=== PATIENT | male | born 2000 | race Hispanic/Latino ===

== ENCOUNTER 2023-02-11 17:43 | Emergency (ER) | payer BC ==
--- NOTE | 2023-02-11 18:08 | EDPHYS ---
Physician Documentation [facility] Name: Boom Cota II Age: 22 yrs Sex: Male : 2000 Arrival Date: 02/11/2023 Time: 17:43 Bed DIS3 Private MD: ED Physician Adrien Ledesma HPI: 02/11 18:02 This 22 yrs old Male presents to ER via Ambulatory with complaints of Asthma cp Exacerbation. 18:02 The patient presents to the emergency department with wheezing, Current therapy: cp nebulizer, that began after exposure to smoke, the patient was reported to have audible wheezing, trouble breathing. Onset: The symptoms/episode began/occurred last night, and improved today. Associated signs and symptoms: Pertinent negatives: chest pain, fever, palpitations, cough, swelling of lower legs. Severity of symptoms: in the emergency department the symptoms have resolved and did so earlier today. Historical: - Allergies: 17:56 No Known Allergies; iw - PMHx: 17:56 Asthma; iw - PSHx: 17:56 None; iw - Immunization history:: Adult Immunizations unknown. - Social history:: Smoking status: unknown. ROS: 18:04 Eyes: Negative for injury, pain, redness, and discharge, cp 18:04 Constitutional: Negative for body aches, chills, fever, poor PO intake, 18:04 ENT: Negative for drainage from ear(s), ear pain, sore throat, difficulty swallowing, difficulty handling secretions, 18:04 Cardiovascular: Negative for chest pain, edema, palpitations, 18:04 Respiratory: Positive for shortness of breath, on exertion. wheezing, Negative for cough, 18:04 Abdomen/GI: Negative for abdominal pain, vomiting, diarrhea, constipation, 18:04 Neuro: Negative for altered mental status, dizziness, headache, syncope, weakness, 18:04 All other systems are negative, Exam: 18:05 Head/Face: Normocephalic, atraumatic. cp 18:05 Constitutional: The patient appears in no acute distress, alert, awake, comfortable, non-toxic, well developed, well nourished, 18:05 Eyes: Periorbital structures: appear normal, Conjunctiva: normal, no exudate, no injection, Sclera: no appreciated abnormality, Lids and lashes: appear normal, bilaterally, 18:05 ENT: External ear(s): are unremarkable, Nose: is normal, Mouth: Lips: moist, Oral mucosa: pink and intact, moist, Posterior pharynx: Airway: no evidence of obstruction, patent, 18:05 Neck: ROM/movement: is normal, is supple, without pain, no range of motions limitations, 18:05 Chest/axilla: Inspection: normal, Palpation: is normal, no crepitus, no tenderness, 18:05 Cardiovascular: Rate: normal, Rhythm: regular, Edema: is not appreciated, JVD: is not appreciated, 18:05 Respiratory: the patient does not display signs of respiratory distress, Respirations: normal, no use of accessory muscles, no retractions, labored breathing, is not present, Breath sounds: are clear throughout, no decreased breath sounds, no stridor, no wheezing, 18:05 Abdomen/GI: Exam negative for discomfort, distension, guarding, Inspection: abdomen appears normal, 18:05 Back: pain, is absent, ROM is normal, 18:05 Neuro: Orientation: to person, place \T\ time. Mentation: is normal, Motor: moves all fours, strength is normal, Gait: is steady, at a normal pace, without difficulty, Vital Signs: 17:54 BP 142 / 88; Pulse 80; Resp 19; Pulse Ox 99% on R/A; Weight 113.4 kg; iw 18:00 Height 5 ft. 11 in. ; iw MDM: 18:01 Patient medically screened. cp 18:05 Differential diagnosis: acute asthma, reactive airway, anaphylaxis, URI. cp 18:08 Data reviewed: vital signs, nurses notes, and as a result, I will discharge patient. cp 18:08 Counseling: I had a detailed discussion with the patient and/or guardian regarding the cp historical points, exam findings, and any diagnostic results supporting the discharge/admit diagnosis, the need for outpatient follow up, for definitive care, a family practitioner, to return to the emergency department if symptoms worsen or persist or if there are any questions or concerns that arise at home. Administered Medications: No medications were administered Disposition: 19:54 I was immediately available on-site in the Emergency Department for consultation in the [facility] care of the patient. Disposition Summary: 02/11/23 18:08 Discharge Ordered Notes: Location: Home cp Problem: chronic cp Symptoms: are unchanged cp Condition: Stable cp Diagnosis - Unspecified asthma, uncomplicated cp Followup: cp - With: Private Physician - When: 2 - 3 days - Reason: Worsening of condition Discharge Instructions: - Discharge Summary Sheet cp - Asthma, Adult cp Forms: - Work release form iw - Medication Reconciliation Form cp - Thank You Letter cp - Antibiotic Education cp - Prescription Opioid Use cp - Patient Portal Instructions cp - Leadership Thank You Letter cp Prescriptions: - albuterol sulfate 90 mcg/actuation Inhalation HFA Aerosol Inhaler - inhale 1 puff INHALATION route every 4 to 6 hours as needed for bronchospasm; cp administer via ventilator; 1 unit; Refills: 0, Product Selection Permitted - Albuterol Sulfate 2.5 mg /3 mL (0.083 %) Inhalation Solution for Nebulization - inhale 1 unit NEBULIZATION route every 8 hours As needed; 1 unit; Refills: 0, cp Product Selection Permitted Signatures: Amparo Alatorre RN RN iw Kody Jacobsen PA PA cp Sims, Marcus, DO DO ms3
--- NOTE | 2023-02-11 18:08 | ER ---
Nurse's Notes [facility] Name: Boom Cota II Age: 22 yrs Sex: Male : 2000 Arrival Date: 02/11/2023 Time: 17:43 Bed DIS3 Private MD: Diagnosis: Unspecified asthma, uncomplicated Presentation: 02/11 17:54 Chief complaint: Patient states: my asthma has been acting up since last night, my iw nebulizer tubing is messed up and it broke today, I have to work tonight and I'm worried I'll have an asthma attack. Coronavirus screen: Client presents with at least one sign or symptom that may indicate coronavirus-19. Ebola Screen: Patient negative for fever greater than or equal to 101.5 degrees Fahrenheit, and additional compatible Ebola Virus Disease symptoms Patient denies exposure to infectious person. Patient denies travel to an Ebola-affected area in the 21 days before illness onset. No symptoms or risks identified at this time. Initial Sepsis Screen: Does the patient meet any 2 criteria? No. Patient's initial sepsis screen is negative. Does the patient have a suspected source of infection? No. Patient's initial sepsis screen is negative. Risk Assessment: Do you want to hurt yourself or someone else? Patient reports no desire to harm self or others. Onset of symptoms was February 11, 2023. 17:54 Method Of Arrival: Ambulatory iw 17:54 Acuity: CORNELIO 4 iw Historical: - Allergies: 17:56 No Known Allergies; iw - PMHx: 17:56 Asthma; iw - PSHx: 17:56 None; iw - Immunization history:: Adult Immunizations unknown. - Social history:: Smoking status: unknown. Screenin:03 [facility] ED Fall Risk Assessment (Adult) Score/Fall Risk Level 0 - 2 = Low Risk. Abuse iw screen: Denies threats or abuse. Denies injuries from another. Nutritional screening: No deficits noted. Tuberculosis screening: No symptoms or risk factors identified. Assessment: 18:02 General: Appears in no apparent distress. Behavior is calm, cooperative. Pain: Denies iw pain. Neuro: Leung Agitation-Sedation Scale (RASS): Level of Consciousness is awake, alert, obeys commands, Oriented to person, place, time, situation, Moves all extremities. Full function. Cardiovascular: Patient's skin is warm and dry. Respiratory: Respiratory effort is even, unlabored, Respiratory pattern is regular, symmetrical. GI: Abdomen is non-distended. Derm: Skin is intact, is healthy with good turgor. Musculoskeletal: Range of motion: intact in all extremities. Vital Signs: 17:54 BP 142 / 88; Pulse 80; Resp 19; Pulse Ox 99% on R/A; Weight 113.4 kg; iw 18:00 Height 5 ft. 11 in. ; iw ED Course: 17:49 Patient arrived in ED. im 17:50 Kody Jacobsen PA is PHCP. cp 17:50 Adrien Ledesma DO is Attending Physician. cp 17:56 Triage completed. iw 18:00 Amparo Alatorre RN is Primary Nurse. iw 18:02 Arm band placed on. iw 18:03 Patient has correct armband on for positive identification. Provided Education on: . iw 18:03 No provider procedures requiring assistance completed. Patient did not have IV access iw during this emergency room visit. Administered Medications: No medications were administered Medication: 18:03 VIS not applicable for this client. iw Outcome: 18:08 Discharge ordered by MD. cp 18:29 Discharged to home ambulatory, iw 18:29 Condition: good 18:29 Discharge instructions given to patient, Instructed on discharge instructions, follow up and referral plans. medication usage, Demonstrated understanding of instructions, follow-up care, medications, Prescriptions given X 2, 18:30 Patient left the ED. iw Signatures: Amparo Alatorre RN RN iw Kody Jacobsen PA PA cp Amaya Lee im Corrections: (The following items were deleted from the chart) 18:01 18:00 Height 72 in.; iw iw
[2023-02-11 18:36] VITALS: BP 142/88; O2SAT 99
== END 2023-02-11 18:30 | disposition home or self-care (01) ==
LOC: ER 17:43
DX: J45.909 Unspecified asthma, uncomplicated (principal)
CPT/HCPCS: 99283

== ENCOUNTER → 2023-03-26 | Emergency (ER) | payer BC ==
--- NOTE | 2023-03-26 19:29 | EDPHYS ---
Physician Documentation [facility] Name: Boom Cota II Age: 22 yrs Sex: Male : 2000 Arrival Date: 03/26/2023 Time: 19:02 Bed Waiting Private MD: ED Physician Juan Francisco Olivares HPI: 03/26 19:25 This 22 yrs old Male presents to ER via Unassigned with complaints of Work kb Note. 19:25 Patient is a 22-year-old male who has a history of asthma presenting for a note to kb return to work today. States he sprained his ankle 4 days ago after falling off of a scooter, was seen at the [place] [facility], had x-rays done that showed no fracture and was given a walking boot. States they were supposed to give him a note to return to work but they did not so he came in to see if he could get 1 because yesterday at work at 10 PM. Historical: - Allergies: 19:46 No Known Allergies; jj7 - PMHx: 19:46 Asthma; jj7 - PSHx: 19:46 None; jj7 - Immunization history:: Adult Immunizations up to date. - Social history:: Smoking status: Patient denies any tobacco usage or history of. Patient uses street drugs, marijuana. ROS: 19:25 Constitutional: Negative for fever, chills, and weight loss, kb 19:25 MS/extremity: Positive for pain, swelling, tenderness, of the lateral side of right foot and dorsum of right foot, 19:25 All other systems are negative, Exam: 19:25 Constitutional: This is a well developed, well nourished patient who is awake, alert, kb and in no acute distress. Head/Face: Normocephalic, atraumatic. ENT: Moist Mucous membranes Cardiovascular: Regular rate Respiratory: Respirations even and unlabored. No increased work of breathing. Talking in full sentences Skin: Warm, dry with normal turgor. Normal color. Neuro: Awake and alert, GCS 15, oriented to person, place, time, and situation. Moves all extremities. Normal gait. 19:25 Musculoskeletal/extremity: Extremities: grossly normal except: noted in the dorsum of right foot and lateral side of right foot: pain, swelling, tenderness, ROM: intact in all extremities, Circulation is intact in all extremities. Sensation intact. Weight bearing: able to fully bear weight, Vital Signs: 19:41 BP 155 / 90; Pulse 77; Resp 17; Temp 97.1; Pulse Ox 98% ; Weight 113.4 kg; Height 5 ft. jj7 11 in. ; Pain 5/10; 19:41 Body Mass Index 34.87 (113.40 kg, 180.34 cm) [facility] 19:41 Pain Scale: Adult [facility] MDM: 19:09 Patient medically screened. kb 19:25 Differential diagnosis: Fracture, sprain, encounter for note. Data reviewed: vital kb signs, nurses notes. Test considered but Not performed: X-ray: Foot x-ray considered but patient reports symptoms are improving since initial injury, patient is already had a negative x-ray. Counseling: I had a detailed discussion with the patient and/or guardian regarding the historical points, exam findings, and any diagnostic results supporting the discharge/admit diagnosis, the need for outpatient follow up, a orthopedic surgeon, to return to the emergency department if symptoms worsen or persist or if there are any questions or concerns that arise at home. Administered Medications: No medications were administered Disposition: 20:11 Co-signature as Attending Physician, Juan Francisco Olivares MD I reviewed the patient's care rt provided by the Advanced Practice Provider and agree with the diagnosis and treatment plan. Disposition Summary: 03/26/23 19:29 Discharge Ordered Notes: Location: Home Condition: Stable kb Diagnosis - Encounter for issue of other medical certificate kb - Sprain of foot kb Followup: kb - With: Emergency Department - When: As needed - Reason: Worsening of condition Followup: kb - With: Private Physician - When: 2 - 3 days - Reason: Recheck today's complaints, Continuance of care, Re-evaluation by your physician Discharge Instructions: - Discharge Summary Sheet kb - Foot Sprain kb Forms: - Work release form kb - Medication Reconciliation Form kb - Thank You Letter kb - Antibiotic Education kb - Prescription Opioid Use kb - Patient Portal Instructions kb - Leadership Thank You Letter kb Signatures: Christiana Leon FNP-C FNP-Silver Flores RN RN jj7 Juan Francisco Olivares MD MD rt
--- NOTE | 2023-03-26 19:51 | ER ---
Nurse's Notes [facility] Name: Boom Cota II Age: 22 yrs Sex: Male : 2000 Arrival Date: 03/26/2023 Time: 19:02 Bed Waiting Private MD: Diagnosis: Encounter for issue of other medical certificate;Sprain of foot Presentation: 03/26 19:41 Chief complaint: Patient states: SPRAINED HIS RIGHT FOOT SUNDAY. STILL HAVING PAIN. jj7 Coronavirus screen: At this time, the client does not indicate any symptoms associated with coronavirus-19. Ebola Screen: No symptoms or risks identified at this time. Initial Sepsis Screen: Does the patient meet any 2 criteria? No. Patient's initial sepsis screen is negative. Does the patient have a suspected source of infection? No. Patient's initial sepsis screen is negative. Risk Assessment: Do you want to hurt yourself or someone else? Patient reports no desire to harm self or others. 19:41 Method Of Arrival: Ambulatory [facility] 19:41 Acuity: CORNELIO 5 jj7 Triage Assessment: 19:46 General: Appears in no apparent distress. comfortable, Behavior is calm, cooperative, jj7 appropriate for age. Pain: Complains of pain in dorsum of right foot. Musculoskeletal: Reports pain in dorsum of right foot. Historical: - Allergies: 19:46 No Known Allergies; jj7 - PMHx: 19:46 Asthma; jj7 - PSHx: 19:46 None; jj7 - Immunization history:: Adult Immunizations up to date. - Social history:: Smoking status: Patient denies any tobacco usage or history of. Patient uses street drugs, marijuana. Screenin:48 [facility] ED Fall Risk Assessment (Adult) History of falling in the last 3 months, jj7 including since admission No falls in past 3 months (0 pts). [facility] ED Fall Risk Assessment (Adult) Confusion or Disorientation No (0 pts) Intoxicated or Sedated No (0 pts) Impaired Gait No (0 pts) Mobility Assist Device Used No (0 pt) Altered Elimination No (0 pt) Score/Fall Risk Level 0 - 2 = Low Risk Oriented to surroundings, Maintained a safe environment, Educated pt \T\ family on fall prevention, incl call for assistance when getting out of bed. Abuse screen: Denies threats or abuse. Nutritional screening: No deficits noted. Tuberculosis screening: No symptoms or risk factors identified. Assessment: 19:48 Reassessment: SEE TRIAGE ASSESSMENT. jj7 Vital Signs: 19:41 BP 155 / 90; Pulse 77; Resp 17; Temp 97.1; Pulse Ox 98% ; Weight 113.4 kg; Height 5 ft. jj7 11 in. ; Pain 5/10; 19:41 Body Mass Index 34.87 (113.40 kg, 180.34 cm) jj7 19:41 Pain Scale: Adult j7 ED Course: 19:06 Patient arrived in ED. ae5 19:08 Christiana Leon F[facility]-C [facility]. ld1 19:09 Juan Francisco Olivares MD is Attending Physician. kb 19:46 Triage completed. jj7 19:46 Arm band placed on right wrist. jj7 19:48 Allergy band placed. jj7 19:48 No provider procedures requiring assistance completed. Patient did not have IV access jj7 during this emergency room visit. Administered Medications: No medications were administered Medication: 19:48 VIS not applicable for this client. jj7 Outcome: 19:29 Discharge ordered by . kb 19:48 Discharged to home ambulatory, jj7 19:48 Condition: good 19:48 Discharge instructions given to patient, Instructed on discharge instructions, Demonstrated understanding of instructions, 19:50 Patient left the ED. jj7 Signatures: Christiana Leon FNP-C FNP-Ckb Sims, Lauren, RN RN ld1 Silver Kimball RN RN jj7 Madelyn Stubbs ae5
[2023-03-27 00:42] VITALS: BP 155/90; TEMP 97.1; O2SAT 98
== END ==
LOC: ER 19:02
DX: Z02.79 Encounter for issue of other medical certificate (principal); S93.601A Unspecified sprain of right foot, initial encounter
CPT/HCPCS: 99282

== ENCOUNTER 2023-08-16 06:59 | Emergency (ER) | payer BC ==
[2023-08-16] MEDS ORDERED: ALBUTEROL 2.5 MG/3 ML NEB SOL ONE (07:20)
--- NOTE | 2023-08-16 07:34 | EDPHYS ---
Physician Documentation [facility] Name: Boom Cota II Age: 23 yrs Sex: Male : 2000 Arrival Date: 08/16/2023 Time: 06:59 Bed 6 Private MD: ED Physician Amari Enriquez HPI: 08/15 07:32 This 23 yrs old Male presents to ER via Ambulatory with complaints of Asthma rn Exacerbation. 07:32 The patient presents to the emergency department with wheezing, that began without any rn particular precipitating event. Onset: The symptoms/episode began/occurred yesterday. Modifying factors: The symptoms are alleviated by nothing, the symptoms are aggravated by nothing. Severity of symptoms: At their worst the symptoms were very mild in the emergency department the symptoms are unchanged. The patient has experienced similar episodes in the past. Patient reports has known asthma, has noticed some wheezing lately but ran out of his inhaler. Denies illness. No fever or cough. Denies shortness of breath. No trauma.. Historical: - Allergies: 07:14 No Known Allergies; ss - Home Meds: 07:14 ProAir [Active]; ss - PMHx: 07:07 Asthma; ld1 - PSHx: 07:14 None; ss - Immunization history:: Client reports receiving the 2nd dose of the Covid vaccine. - Infectious Disease History:: Denies. - Social history:: Smoking status: Patient reports the use of cigarette tobacco products, denies chronic smoking, but will smoke occasionally. - Family history:: not pertinent. - Hospitalizations: : No recent hospitalization is reported. ROS: 07:32 Constitutional: Negative for fever, chills, and weight loss, Cardiovascular: Negative rn for chest pain, palpitations, and edema, Respiratory: Positive for wheezing Exam: 07:32 Constitutional: This is a well developed, well nourished patient who is awake, alert, rn and in no acute distress. ENT: No stridor Cardiovascular: Regular rate and rhythm. No pulse deficits. Respiratory: Positive for intermittent wheezing bilaterally, no retractions Vital Signs: 07:10 Pulse 90; Resp 17; Temp 98(O); Pulse Ox 97% on R/A; Weight 111.13 kg; Height 5 ft. 11 ss in. ; Pain 0/10; 07:10 Body Mass Index 34.17 (111.13 kg, 180.34 cm) ss 07:10 Pain Scale: Adult ss MDM: 07:06 Patient medically screened. rn 07:32 Differential diagnosis: reactive airway. Data reviewed: vital signs, nurses notes, and rn as a result, I will discharge patient. Counseling: I had a detailed discussion with the patient and/or guardian regarding the historical points, exam findings, and any diagnostic results supporting the discharge/admit diagnosis, the need for outpatient follow up, to return to the emergency department if symptoms worsen or persist or if there are any questions or concerns that arise at home. Special discussion: I discussed with the patient/guardian in detail that at this point there is no indication for admission to the hospital. It is understood, however, that if the symptoms persist or worsen the patient needs to return immediately for re-evaluation. Administered Medications: 07:25 Drug: Albuterol Inhalation 2.5 mg Inhalation once Route: Inhalation; ld1 07:39 Follow up: Response: No adverse reaction ap3 Disposition Summary: 08/16/23 07:34 Discharge Ordered Notes: Location: Home rn Problem: chronic rn Symptoms: have improved rn Condition: Stable rn Diagnosis - Mild intermittent asthma rn Followup: rn - With: Private Physician - When: As needed - Reason: Recheck today's complaints, Re-evaluation by your physician Discharge Instructions: - Discharge Summary Sheet rn - Asthma, Adult rn Forms: - Medication Reconciliation Form rn - Antibiotic furniture restorer - Prescription Opioid Use rn - Patient Portal Instructions rn - Leadership Thank You Letter rn Prescriptions: - ProAir RespiClick 90 mcg/actuation Inhalation Aerosol Powder, Breath Activated - administer 2 inhalation INHALATION route every 6 hours As needed as needed for rn shortness of breath or wheezing; 1 unit; Refills: 0, Product Selection Permitted Signatures: Amari Enriquez MD MD rn Blanchard, Shelby, RN RN Oelna Zhang RN RN [email or web address] Rosalva Chowdhury RN ap3
--- NOTE | 2023-08-16 07:34 | ER ---
Nurse's Notes [facility] Name: Boom Cota II Age: 23 yrs Sex: Male : 2000 Arrival Date: 08/16/2023 Time: 06:59 Bed 6 Private MD: Diagnosis: Mild intermittent asthma Presentation: 08/15 07:10 Chief complaint: Patient states: asthma exacerbation since yesterday. Pt reports that ss his airway just feels a little tight. Has not needed his asthma medication in some time. Coronavirus screen: Client denies travel out of the [place] in the last 14 days. Ebola Screen: Patient denies exposure to infectious person. Patient denies travel to an Ebola-affected area in the 21 days before illness onset. Initial Sepsis Screen: Does the patient meet any 2 criteria? No. Patient's initial sepsis screen is negative. Does the patient have a suspected source of infection? No. Patient's initial sepsis screen is negative. Risk Assessment: Do you want to hurt yourself or someone else? Patient reports no desire to harm self or others. Onset of symptoms was August 15, 2023. 07:10 Method Of Arrival: Ambulatory ss 07:10 Acuity: CORNELIO 4 ss Historical: - Allergies: 07:14 No Known Allergies; ss - Home Meds: 07:14 ProAir [Active]; ss - PMHx: 07:07 Asthma; ld1 - PSHx: 07:14 None; ss - Immunization history:: Client reports receiving the 2nd dose of the Covid vaccine. - Infectious Disease History:: Denies. - Social history:: Smoking status: Patient reports the use of cigarette tobacco products, denies chronic smoking, but will smoke occasionally. - Family history:: not pertinent. - Hospitalizations: : No recent hospitalization is reported. Screenin:37 Abuse screen: Denies threats or abuse. Nutritional screening: No deficits noted. ap3 Tuberculosis screening: No symptoms or risk factors identified. 07:38 [facility] ED Fall Risk Assessment (Adult) History of falling in the last 3 months, ap3 including since admission No falls in past 3 months (0 pts) Confusion or Disorientation No (0 pts) Intoxicated or Sedated No (0 pts) Impaired Gait No (0 pts) Mobility Assist Device Used No (0 pt) Altered Elimination No (0 pt) Score/Fall Risk Level 0 - 2 = Low Risk Oriented to surroundings, Maintained a safe environment, Educated pt \T\ family on fall prevention, incl call for assistance when getting out of bed, Assessed \T\ reinforced patient's understanding of fall precautions, Provided non-skid footwear, Hourly rounding (assess needs \T\ fall precautionary measures) done, Used ambulatory aids as needed (educated on \T\ assisted with), Used gait belt as appropriate. Assessment: 07:37 General: Appears in no apparent distress. Behavior is calm, cooperative, appropriate ap3 for age. Pain: Denies pain. Neuro: Level of Consciousness is awake, alert, obeys commands, Oriented to person, place, time, situation, Appropriate for age. Cardiovascular: Patient's skin is warm and dry. Respiratory: Reports shortness of breath on exertion Airway is patent Respiratory effort is even, unlabored, Respiratory pattern is regular, symmetrical. Vital Signs: 07:10 Pulse 90; Resp 17; Temp 98(O); Pulse Ox 97% on R/A; Weight 111.13 kg; Height 5 ft. 11 ss in. ; Pain 0/10; 07:10 Body Mass Index 34.17 (111.13 kg, 180.34 cm) ss 07:10 Pain Scale: Adult ss ED Course: 07:01 Patient arrived in ED. gm2 07:06 Amari Enriquez MD is Attending Physician. rn 07:10 Arm band placed on right wrist. ss 07:12 Olena Ledesma RN is Primary Nurse. ld1 07:13 Triage completed. ss 07:38 Patient has correct armband on for positive identification. Provided Education on: call ap3 light education. 07:38 No provider procedures requiring assistance completed. Patient did not have IV access ap3 during this emergency room visit. Administered Medications: 07:25 Drug: Albuterol Inhalation 2.5 mg Inhalation once Route: Inhalation; ld1 07:39 Follow up: Response: No adverse reaction ap3 Medication: 07:38 VIS not applicable for this client. ap3 Outcome: 07:34 Discharge ordered by . rn 07:46 Discharged to home ambulatory, ld1 07:46 Condition: stable 07:46 Discharge instructions given to patient, Instructed on discharge instructions, follow up and referral plans. medication usage, Demonstrated understanding of instructions, follow-up care, medications, Prescriptions given X 1, 07:46 Patient left the ED. ld1 Signatures: Amari Enriquez MD MD rn Blanchard, Shelby, RN RN ss Rosalva Chowdhury RN RN [email or web address] Olena Ledesma RN RN [email or web address] Chely Li [facility]
[2023-08-16 08:08] VITALS: TEMP 98; O2SAT 97
== END 2023-08-16 07:46 | disposition home or self-care (01) ==
LOC: ER 06:59
DX: J45.21 Mild intermittent asthma with (acute) exacerbation (principal)
CPT/HCPCS: 99284; J7613

== ENCOUNTER 2023-10-09 07:00 | Emergency (ER) | payer BC ==
[2023-10-09] MEDS ORDERED: ALBUTEROL 2.5 MG/3 ML NEB SOL ONE (07:20)
--- NOTE | 2023-10-09 17:04 | ER ---
Nurse's Notes [facility] Name: Boom Cota II Age: 23 yrs Sex: Male : 2000 Arrival Date: 10/09/2023 Time: 07:00 Bed 8 Private MD: Diagnosis: Mild intermittent asthma Presentation: 10/08 07:13 Chief complaint: Patient states: ASTHMA IS ACTING UP. DOES NOT HAVE A PCP. Coronavirus dd2 screen: At this time, the client does not indicate any symptoms associated with coronavirus-19. Ebola Screen: No symptoms or risks identified at this time. Initial Sepsis Screen: Does the patient meet any 2 criteria? No. Patient's initial sepsis screen is negative. Does the patient have a suspected source of infection? No. Patient's initial sepsis screen is negative. Risk Assessment: Do you want to hurt yourself or someone else? Patient reports no desire to harm self or others. Onset of symptoms is unknown. 07:13 Method Of Arrival: Ambulatory dd2 07:13 Acuity: CORNELIO 4 dd2 Triage Assessment: 07:15 General: Appears in no apparent distress. Behavior is calm, cooperative. Pain: Denies dd2 pain. Historical: - Allergies: 07:15 No Known Allergies; dd2 - Home Meds: 07:15 Albuterol Inhl [Active]; albuterol sulfate 2.5 mg /3 mL (0.083 %) Nebulizer Solution dd2 for Nebulization [Active]; - PMHx: 07:15 Asthma; dd2 - PSHx: 07:15 None; dd2 - Immunization history:: Adult Immunizations unknown. - Infectious Disease History:: Denies. - Family history:: not pertinent. - Social history:: Smoking status: Patient denies any tobacco usage or history of. - Hospitalizations: : No recent hospitalization is reported. Screenin:18 [facility] ED Fall Risk Assessment (Adult) History of falling in the last 3 months, dd2 including since admission No falls in past 3 months (0 pts) Confusion or Disorientation No (0 pts) Intoxicated or Sedated No (0 pts) Impaired Gait No (0 pts) Mobility Assist Device Used No (0 pt) Altered Elimination No (0 pt) Score/Fall Risk Level 0 - 2 = Low Risk Oriented to surroundings, Maintained a safe environment, Hourly rounding (assess needs \T\ fall precautionary measures) done. Abuse screen: Denies threats or abuse. Nutritional screening: No deficits noted. Tuberculosis screening: No symptoms or risk factors identified. Assessment: 07:18 General: Appears in no apparent distress. Behavior is calm, cooperative. Pain: Denies dd2 pain. Neuro: No deficits noted. Cardiovascular: No deficits noted. Respiratory: Breath sounds with wheezes bilaterally. GI: No deficits noted. : No deficits noted. EENT: No deficits noted. Derm: No deficits noted. Musculoskeletal: No deficits noted. Vital Signs: 07:13 BP 188 / 85; Pulse 58; Resp 17; Temp 98.3; Pulse Ox 96% ; dd2 07:25 BP 127 / 84; Pulse 55; Resp 17; Pulse Ox 100% ; dd2 07:50 BP 134 / 72; ko1 07:56 BP 134 / 82; Pulse 60; Resp 16; Pulse Ox 99% on R/A; ko1 07:57 BP 074 / 5; ko1 ED Course: 07:03 Patient arrived in ED. mr 07:03 Amari Enriquez MD is Attending Physician. rn 07:09 Jan Sanchez, MARIAM is Primary Nurse. bp 07:15 Triage completed. dd2 07:15 Arm band placed on right wrist. Patient placed in an exam room, on a stretcher, on dd2 pulse oximetry. 07:18 Patient has correct armband on for positive identification. Bed in low position. Call dd2 light in reach. Side rails up X 1. Provided Education on: CALL LIGHT, MEDICATION. 07:18 No provider procedures requiring assistance completed. Patient did not have IV access dd2 during this emergency room visit. 07:18 Initial Neb Treatment Given as ordered Patient was instructed and evaluated on ko1 procedure Patient tolerated procedure well without adverse effect. 07:44 Mic Miramontes MD is Referral Physician. rn Administered Medications: 07:18 Drug: Albuterol Inhalation 2.5 mg Inhalation once Route: Inhalation; dd2 07:45 Follow up: Response: No adverse reaction; Wheezing diminished ko1 07:50 Follow up: BP 134 / 72 ko1 07:57 Follow up: BP 074 / 5 ko1 Medication: 07:56 VIS not applicable for this client. ko1 Outcome: 07:18 Discharged to home ambulatory, ko1 07:18 Condition: stable 07:18 Discharge instructions given to patient, Instructed on discharge instructions, follow up and referral plans. medication usage, Demonstrated understanding of instructions, follow-up care, medications, Prescriptions given X 1, 07:44 Discharge ordered by . rn 08:02 Patient left the ED. ko1 Signatures: Patsy Guerra, Cricket Reg mr Amari Enriquez MD MD rn Peltier, Brian, RN RN Nimisha Amanda RN RN ko1 JENIFER CUEVAS RN RN dd2 Corrections: (The following items were deleted from the chart) 07:17 07:15 Home Meds: proair; dd2 dd2
--- NOTE | 2023-10-09 17:04 | EDPHYS ---
Physician Documentation [facility] Name: Boom Cota II Age: 23 yrs Sex: Male : 2000 Arrival Date: 10/09/2023 Time: 07:00 Bed 8 Private MD: ED Physician Amari Enriquez HPI: 10/08 07:12 This 23 yrs old Male presents to ER via Unassigned with complaints of Asthma rn Exacerbation. 07:12 The patient presents to the emergency department with wheezing, Current therapy: rn albuterol nebs, that began without any particular precipitating event, the patient was reported to have audible wheezing. Modifying factors: The symptoms are alleviated by nothing, the symptoms are aggravated by nothing. Associated signs and symptoms: Pertinent negatives: fever. Severity of symptoms: At their worst the symptoms were very mild in the emergency department the symptoms are unchanged. The patient has experienced similar episodes in the past. Patient reports ran out of his nebulizer medication recently. Has not been able to find a PCP here. No fever. No productive cough. No chest pain.. Historical: - Allergies: 07:15 No Known Allergies; dd2 - Home Meds: 07:15 Albuterol Inhl [Active]; albuterol sulfate 2.5 mg /3 mL (0.083 %) Nebulizer Solution dd2 for Nebulization [Active]; - PMHx: 07:15 Asthma; dd2 - PSHx: 07:15 None; dd2 - Immunization history:: Adult Immunizations unknown. - Infectious Disease History:: Denies. - Family history:: not pertinent. - Social history:: Smoking status: Patient denies any tobacco usage or history of. - Hospitalizations: : No recent hospitalization is reported. ROS: 07:12 Constitutional: Negative for fever, chills, and weight loss, Cardiovascular: Negative rn for chest pain, palpitations, and edema, Respiratory: Positive for wheezing Abdomen/GI: Negative for abdominal pain, nausea, vomiting, diarrhea, and constipation, MS/Extremity: Negative for injury and deformity, Skin: Negative for injury, rash, and discoloration, Neuro: Negative for headache, weakness, numbness, tingling, and seizure, Exam: 07:12 Constitutional: This is a well developed, well nourished patient who is awake, alert, rn and in no acute distress. Cardiovascular: Regular rate and rhythm. No pulse deficits. Respiratory: No increased work of breathing, positive faint expiratory wheezing bilateral upper lobes Vital Signs: 07:13 BP 188 / 85; Pulse 58; Resp 17; Temp 98.3; Pulse Ox 96% ; dd2 07:25 BP 127 / 84; Pulse 55; Resp 17; Pulse Ox 100% ; dd2 07:50 BP 134 / 72; ko1 07:56 BP 134 / 82; Pulse 60; Resp 16; Pulse Ox 99% on R/A; ko1 07:57 BP 074 / 5; ko1 MDM: 07:03 Patient medically screened. rn 07:43 Differential diagnosis: acute asthma, reactive airway. Data reviewed: vital signs, rn nurses notes, and as a result, I will discharge patient. Counseling: I had a detailed discussion with the patient and/or guardian regarding the historical points, exam findings, and any diagnostic results supporting the discharge/admit diagnosis, the need for outpatient follow up, to return to the emergency department if symptoms worsen or persist or if there are any questions or concerns that arise at home. Special discussion: I discussed with the patient/guardian in detail that at this point there is no indication for admission to the hospital. It is understood, however, that if the symptoms persist or worsen the patient needs to return immediately for re-evaluation. Based on the history and exam findings, there is no indication for further emergent testing or inpatient evaluation. I discussed with the patient/guardian the need to see the car supplier for further evaluation of the symptoms. Administered Medications: 07:18 Drug: Albuterol Inhalation 2.5 mg Inhalation once Route: Inhalation; dd2 07:45 Follow up: Response: No adverse reaction; Wheezing diminished ko1 07:50 Follow up: BP 134 / 72 ko1 07:57 Follow up: BP 074 / 5 ko1 Disposition Summary: 10/09/23 07:44 Discharge Ordered Notes: Location: Home rn Problem: an acute exacerbation rn Symptoms: are unchanged rn Condition: Stable rn Diagnosis - Mild intermittent asthma rn Followup: rn - With: Mic Miramontes MD - When: As needed - Reason: Recheck today's complaints, Re-evaluation by your physician Discharge Instructions: - Discharge Summary Sheet rn - Asthma, Adult rn Forms: - Medication Reconciliation Form rn - 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
[2023-10-10 00:37] VITALS: TEMP 98.3
[2023-10-10 00:49] VITALS: O2SAT 99
[2023-10-10 00:51] VITALS: BP 074/5
== END 2023-10-09 08:02 | disposition home or self-care (01) ==
LOC: ER 07:00
DX: J45.20 Mild intermittent asthma, uncomplicated (principal)
CPT/HCPCS: 99284; J7613

== ENCOUNTER 2023-12-27 06:41 | Emergency (ER) | payer BC ==
[2023-12-27] MEDS ORDERED: ALBUTEROL 2.5 MG/3 ML NEB SOL ONE (06:57)
[2023-12-27] MEDS ORDERED: IPRATROPIUM BROM 0.5MG/2.5ML ONE (06:58)
[2023-12-27] MEDS ORDERED: METHYLPREDNISOLONE 125 MG INJ ONE (06:58)
[2023-12-27 08:10] LABS: SARS-CoV-2 Antigen CONTROL BLUE LINE VIS/BG OK; SARS-CoV-2 Antigen Rapid Res Negative (Negative)
--- NOTE | 2023-12-27 08:49 | ER ---
Nurse's Notes [facility] Name: Boom Cota II Age: 23 yrs Sex: Male : 2000 Arrival Date: 12/27/2023 Time: 06:41 Bed 17 Private MD: Diagnosis: Mild intermittent asthma with (acute) exacerbation Presentation: 12/26 06:55 Chief complaint: Patient states: My asthma has been bothering me for the last 3 days, I vc1 have a cough and I am congested. Coronavirus screen: Client denies travel out of the [place] in the last 14 days. At this time, the client does not indicate any symptoms associated with coronavirus-19. Ebola Screen: Patient negative for fever greater than or equal to 101.5 degrees Fahrenheit, and additional compatible Ebola Virus Disease symptoms Patient denies exposure to infectious person. Patient denies travel to an Ebola-affected area in the 21 days before illness onset. No symptoms or risks identified at this time. Initial Sepsis Screen: Does the patient meet any 2 criteria? RR > 20 per min. No. Patient's initial sepsis screen is negative. Does the patient have a suspected source of infection? No. Patient's initial sepsis screen is negative. Risk Assessment: Do you want to hurt yourself or someone else? Patient reports no desire to harm self or others. Onset of symptoms was December 27, 2023. 06:55 Method Of Arrival: Ambulatory vc1 06:55 Acuity: CORNELIO 3 vc1 Triage Assessment: 06:59 General: Appears distressed, uncomfortable, Behavior is calm, cooperative, appropriate vc1 for age. Pain: Denies pain. EENT: No deficits noted. No signs and/or symptoms were reported regarding the EENT system. Neuro: Level of Consciousness is awake, alert, obeys commands, Oriented to person, place, time, situation, Appropriate for age. Cardiovascular: Capillary refill < 3 seconds. Respiratory: Airway is patent Trachea midline Respiratory effort is even, Respiratory pattern is symmetrical, tachypnea Breath sounds with wheezes bilaterally. GI: No deficits noted. No signs and/or symptoms were reported involving the gastrointestinal system. : No deficits noted. No signs and/or symptoms were reported regarding the genitourinary system. Derm: Skin is intact, is healthy with good turgor, Skin is dry, Skin is normal, Skin temperature is warm. Musculoskeletal: No deficits noted. No signs and/or symptoms reported regarding the musculoskeletal system. Historical: - Allergies: 06:57 No Known Allergies; vc1 - Home Meds: 06:57 Albuterol Inhl [Active]; albuterol sulfate 2.5 mg /3 mL (0.083 %) Inhl Solution for vc1 Nebulization [Active]; proair [Active]; - PMHx: 06:57 Asthma; vc1 - PSHx: 06:57 None; vc1 - Immunization history:: Client reports receiving the 2nd dose of the Covid vaccine. - Infectious Disease History:: Denies. - Social history:: Smoking status: Patient reports the use of cigarette tobacco products, denies chronic smoking, but will smoke occasionally. Screenin:58 [facility] ED Fall Risk Assessment (Adult) History of falling in the last 3 months, vc1 including since admission No falls in past 3 months (0 pts) Confusion or Disorientation No (0 pts) Intoxicated or Sedated No (0 pts) Impaired Gait No (0 pts) Mobility Assist Device Used No (0 pt) Altered Elimination No (0 pt) Score/Fall Risk Level 0 - 2 = Low Risk Oriented to surroundings, Maintained a safe environment, Educated pt \T\ family on fall prevention, incl call for assistance when getting out of bed. Abuse screen: Denies threats or abuse. Nutritional screening: No deficits noted. Tuberculosis screening: No symptoms or risk factors identified. Assessment: 07:02 General: Appears in no apparent distress. Behavior is calm, cooperative, appropriate rg5 for age. Pain: Denies pain. Neuro: Level of Consciousness is awake, alert, obeys commands, Oriented to person, place, time, situation. Cardiovascular: Denies chest pain, Heart tones S1 S2 Patient's skin is warm and dry. Respiratory: Airway is patent Trachea midline Respiratory effort is even, unlabored, Respiratory pattern is regular, Breath sounds with wheezes bilaterally. GI: Abdomen is round non-distended. : No signs and/or symptoms were reported regarding the genitourinary system. EENT: No deficits noted. Derm: Skin is intact, Skin is dry, Skin is normal, Skin temperature is warm. Musculoskeletal: Circulation, motion, and sensation intact. Range of motion: intact in all extremities. 07:22 Reassessment: Patient appears in no apparent distress at this time. Patient and/or db family updated on plan of care and expected duration. Pain level reassessed. Patient is alert, oriented x 3, equal unlabored respirations, skin warm/dry/pink. BREATHING TREATMENT IN PROGRESS. 09:14 Reassessment: Patient appears in no apparent distress at this time. Patient and/or db family updated on plan of care and expected duration. Pain level reassessed. Patient is alert, oriented x 3, equal unlabored respirations, skin warm/dry/pink. Patient states feeling better. Patient states symptoms have improved. Vital Signs: 06:55 BP 131 / 80; Pulse 80; Resp 22; Temp 97.7; Pulse Ox 97% ; Weight 113.4 kg; Height 6 ft. vc1 0 in. ; 07:00 BP 127 / 89; Pulse 71; Resp 18; Pulse Ox 100% on R/A; db 07:30 BP 137 / 70; Pulse 66; Resp 18; Pulse Ox 100% on R/A; db 08:00 BP 127 / 79; Pulse 65; Resp 18; Pulse Ox 100% on R/A; db 09:00 BP 124 / 60; Pulse 75; Resp 18; Pulse Ox 98% on R/A; db 06:55 Body Mass Index 33.91 (113.40 kg, 182.88 cm) vc1 ED Course: 06:43 Patient arrived in ED. [id number] 06:51 Jose Lance, RN is Primary Nurse. rg5 06:57 Triage completed. vc1 06:58 Arm band placed on left wrist. vc1 06:58 Patient has correct armband on for positive identification. Bed in low position. Call vc1 light in reach. Pulse ox on. NIBP on. 07:00 Missed attempt(s): Bleeding controlled, band aid applied, catheter tip intact. db 07:02 No provider procedures requiring assistance completed. rg5 07:13 Rain Posadas MD is Attending Physician. sd2 07:17 SARS RAPID Sent. oe 07:17 Influenza Screen (a \T\ B) Sent. oe 09:14 Provided Education on: DISCHARGE. db 09:14 Patient did not have IV access during this emergency room visit. db Administered Medications: 07:00 Drug: Albuterol Inhalation 2.5 mg Inhalation every 20 minutes x3 Route: Inhalation; rg5 07:00 Drug: Ipratropium Inhalation Aerosol 0.5 mg Inhalation once; Every 20 min for a total rg5 of 3 treatments x3 Route: Inhalation; 07:15 Drug: MethylPREDNISolone Sodium Succinate IM 125 mg IM once Route: IM; Site: right db deltoid; 09:15 Follow up: Response: No adverse reaction db 07:16 Not Given (Duplicate Order): [id number] mg IVP once db 07:21 Drug: Albuterol Inhalation 2.5 mg Inhalation every 20 minutes x3 Route: Inhalation; db 07:21 Drug: Ipratropium Inhalation Aerosol 0.5 mg Inhalation once; Every 20 min for a total db of 3 treatments x3 Route: Inhalation; 07:45 Drug: Albuterol Inhalation 2.5 mg Inhalation every 20 minutes x3 Route: Inhalation; db 09:15 Follow up: Response: No adverse reaction db 07:45 Drug: Ipratropium Inhalation Aerosol 0.5 mg Inhalation once; Every 20 min for a total db of 3 treatments x3 Route: Inhalation; 09:15 Follow up: Response: No adverse reaction db Medication: 06:59 VIS not applicable for this client. vc1 Outcome: 08:48 Discharge ordered by . sd2 09:14 Discharged to home ambulatory, db 09:14 Condition: stable 09:14 Discharge instructions given to patient, Instructed on discharge instructions, follow up and referral plans. Prescriptions given X 3, 09:15 Patient left the ED. db Signatures: Emiliano Stubbs Jennifer jj6 Samantha Calix RN RN vc1 Rain Posadas MD MD sd2 Alexandra Hubbard RN RN db Jose Lance RN RN rg5 Corrections: (The following items were deleted from the chart) 06:58 06:57 PMHx: Asthma; vc1 vc1
--- NOTE | 2023-12-27 08:49 | EDPHYS ---
Physician Documentation [facility] Name: Boom Cota II Age: 23 yrs Sex: Male : 2000 Arrival Date: 12/27/2023 Time: 06:41 Bed 17 Private MD: ED Physician Rain Posadas HPI: 12/26 07:35 This 23 yrs old Male presents to ER via Ambulatory with complaints of Cough, sd2 Congestion, Asthma Exacerbation. 07:35 23 yo M presents with CC of dry cough, nasal congestion and wheezing associated with sd2 asthma exacerbation due to reported seasonal allergies x3 days. Denies any fever, v/d or sick contacts. . Historical: - Allergies: 06:57 No Known Allergies; vc1 - Home Meds: 06:57 Albuterol Inhl [Active]; albuterol sulfate 2.5 mg /3 mL (0.083 %) Inhl Solution for vc1 Nebulization [Active]; proair [Active]; - PMHx: 06:57 Asthma; vc1 - PSHx: 06:57 None; vc1 - Immunization history:: Client reports receiving the 2nd dose of the Covid vaccine. - Infectious Disease History:: Denies. - Social history:: Smoking status: Patient reports the use of cigarette tobacco products, denies chronic smoking, but will smoke occasionally. ROS: 07:35 Constitutional: Negative for fever, chills, and weight loss, Eyes: Negative for injury, sd2 pain, redness, and discharge, Cardiovascular: Negative for chest pain, palpitations, and edema, 07:35 Abdomen/GI: Negative for abdominal pain, nausea, vomiting, diarrhea. Back: Negative for injury and pain, MS/Extremity: Negative for injury and deformity, Skin: Negative for injury, rash, and discoloration, Neuro: Negative for headache, numbness and tingling. 07:35 Respiratory: Positive for cough, shortness of breath, wheezing, Negative for hemoptysis, Exam: 07:35 Constitutional: This is a well developed, well nourished patient who is awake, alert, sd2 and in no acute distress. Head/Face: Normocephalic, atraumatic. Eyes: EOMI, normal conjunctiva bilaterally Chest/axilla: Normal chest wall appearance and motion. Nontender with no deformity. Cardiovascular: Regular rate and rhythm with a normal S1 and S2. No gallops, murmurs, or rubs. 2+ distal pulses. Respiratory: expiratory wheezing noted to RUL, HELIO and LLL, no retractions or tachypnea Abdomen/GI: Soft, non-tender, with normal bowel sounds. No guarding or rebound. No evidence of tenderness throughout. Skin: Warm, dry with normal turgor. Normal color with no rashes, no lesions, and no evidence of cellulitis. MS/ Extremity: Pulses equal, no cyanosis. Neurovascular intact. Full, normal range of motion. Vital Signs: 06:55 BP 131 / 80; Pulse 80; Resp 22; Temp 97.7; Pulse Ox 97% ; Weight 113.4 kg; Height 6 ft. vc1 0 in. ; 07:00 BP 127 / 89; Pulse 71; Resp 18; Pulse Ox 100% on R/A; db 07:30 BP 137 / 70; Pulse 66; Resp 18; Pulse Ox 100% on R/A; db 08:00 BP 127 / 79; Pulse 65; Resp 18; Pulse Ox 100% on R/A; db 09:00 BP 124 / 60; Pulse 75; Resp 18; Pulse Ox 98% on R/A; db 06:55 Body Mass Index 33.91 (113.40 kg, 182.88 cm) vc1 MDM: 07:13 Medical Screening Exam initiated sd2 07:35 Differential Diagnosis: Upper Respiratory Infection Allergic Rhinitis Asthma sd2 Exacerbation Viral Syndrome Other among others. Data reviewed: vital signs, nurses notes. I considered the following discharge prescriptions or medication management in the emergency department Medications were administered in the Emergency Department. See MAR. Care significantly affected by the following chronic conditions: Asthma. Counseling: I had a detailed discussion with the patient and/or guardian regarding. 08:46 Counseling: I had a detailed discussion with the patient and/or guardian regarding the sd2 historical points, exam findings, and any diagnostic results supporting the discharge/admit diagnosis, lab results, radiology results, to return to the emergency department if symptoms worsen or persist or if there are any questions or concerns that arise at home. ED course: Pt feeling improved. Resting comfortably. No further wheezing on exam. Mild tachycardia present to low 100s following nebulizer treatment as likely effect of the medication. Will provide new scripts for albuterol. Pt comfortable with plan for dc and outpatient follow up. . 12/26 06:49 Order name: SARS RAPID; Complete Time: 08:18 sp4 12/26 06:49 Order name: Influenza Screen (a \T\ B); Complete Time: 08:18 sp4 Administered Medications: 07:00 Drug: Albuterol Inhalation 2.5 mg Inhalation every 20 minutes x3 Route: Inhalation; rg5 07:00 Drug: Ipratropium Inhalation Aerosol 0.5 mg Inhalation once; Every 20 min for a total rg5 of 3 treatments x3 Route: Inhalation; 07:15 Drug: MethylPREDNISolone Sodium Succinate IM 125 mg IM once Route: IM; Site: right db deltoid; 09:15 Follow up: Response: No adverse reaction db 07:16 Not Given (Duplicate Order): [id number] mg IVP once db 07:21 Drug: Albuterol Inhalation 2.5 mg Inhalation every 20 minutes x3 Route: Inhalation; db 07:21 Drug: Ipratropium Inhalation Aerosol 0.5 mg Inhalation once; Every 20 min for a total db of 3 treatments x3 Route: Inhalation; 07:45 Drug: Albuterol Inhalation 2.5 mg Inhalation every 20 minutes x3 Route: Inhalation; db 09:15 Follow up: Response: No adverse reaction db 07:45 Drug: Ipratropium Inhalation Aerosol 0.5 mg Inhalation once; Every 20 min for a total db of 3 treatments x3 Route: Inhalation; 09:15 Follow up: Response: No adverse reaction db Disposition Summary: 12/27/23 08:48 Discharge Ordered Problem: an acute exacerbation sd2 Symptoms: have improved sd2 Condition: Stable sd2 Diagnosis - Mild intermittent asthma with (acute) exacerbation sd2 Followup: sd2 - With: Private Physician - When: 2 - 3 days - Reason: Recheck today's complaints, Continuance of care, Re-evaluation by your physician Discharge Instructions: - Discharge Summary Sheet sd2 - Asthma, Adult sd2 - How to Use a Metered Dose Inhaler sd2 - Asthma Attack sd2 Forms: - Medication Reconciliation Form sd2 - Antibiotic Education sd2 - Prescription Opioid Use sd2 - Patient Portal Instructions sd2 - Leadership Thank You Letter sd2 - Work release form db Prescriptions: - albuterol sulfate 90 mcg/actuation Inhalation HFA Aerosol Inhaler - inhale 2 puff INHALATION route every 4-6 hours As needed as needed for trouble sd2 breathing and wheezing; 1 unit; Refills: 0, Product Selection Permitted - Albuterol Sulfate 2.5 mg /3 mL (0.083 %) Inhalation Solution for Nebulization - inhale 1 unit NEBULIZATION route every 4-6 hours As needed as needed for sd2 trouble breathing and wheezing; 30 unit; Refills: 0, Product Selection Permitted - Prednisone 20 mg Oral Tablet - take 2 tablets ORAL route once daily for 5 days; 10 tablet; Refills: 0, Product sd2 Selection Permitted Signatures: Dispatcher [employer] Samantha Jones RN RN vc1 Rain Posadas MD MD sd2 Alexandra Hubbard RN RN db Shon Curtis MD MD sp4 Jose Lance RN RN rg5 Corrections: (The following items were deleted from the chart) 06:58 06:57 PMHx: Asthma; vc1 vc1 07:54 06:49 IV Saline Lock ordered. sp4 db
[2023-12-27 14:57] VITALS: TEMP 97.7
[2023-12-27 15:02] VITALS: BP 124/60; O2SAT 98
== END 2023-12-27 09:15 | disposition home or self-care (01) ==
LOC: ER 06:41
DX: J45.21 Mild intermittent asthma with (acute) exacerbation (principal); Z11.52 Encounter for screening for COVID-19; F17.210 Nicotine dependence, cigarettes, uncomplicated
CPT/HCPCS: 36415; 87804 ×2; 96372; 99285; 87811; J7613; J7644; J2919

== ENCOUNTER 2024-02-13 07:25 | Emergency (ER) | payer BC ==
--- NOTE | 2024-02-13 07:44 | ER ---
Nurse's Notes [facility] Name: Boom Cota II Age: 23 yrs Sex: Male : 2000 Arrival Date: 02/13/2024 Time: 07:25 Bed 5 Private MD: Diagnosis: Mild intermittent asthma Presentation: 02/12 07:38 Chief complaint: Patient states: SOB and congestion started last night at 7 PM. No ll1 fever. Out of albuterol inhaler at home, needs work note. Coronavirus screen: Client denies travel out of the [place] in the last 14 days. congestion, difficulty breathing, shortness of breath, Client presents with at least one sign or symptom that may indicate coronavirus-19. Standard/surgical mask placed on the client. Ebola Screen: Patient denies travel to an Ebola-affected area in the 21 days before illness onset. Initial Sepsis Screen: Does the patient meet any 2 criteria? No. Patient's initial sepsis screen is negative. Does the patient have a suspected source of infection? No. Patient's initial sepsis screen is negative. Risk Assessment: Do you want to hurt yourself or someone else? Patient reports no desire to harm self or others. Onset of symptoms was February 12, 2024. 07:38 Method Of Arrival: Ambulatory ll1 07:38 Acuity: CORNELIO 4 ll1 Triage Assessment: 07:40 General: Appears in no apparent distress. Behavior is calm, cooperative, appropriate ll1 for age. Pain: Denies pain. EENT: Reports nasal congestion. Respiratory: Reports shortness of breath labored breathing. Historical: - Allergies: 07:37 No Known Allergies; ll1 - Home Meds: 07:37 albuterol sulfate 2.5 mg /3 mL (0.083 %) Inhl Solution for Nebulization [Active]; ll1 - PMHx: 07:37 Asthma; ll1 - PSHx: 07:37 None; ll1 - Immunization history:: Adult Immunizations up to date. - Infectious Disease History:: Denies. - Social history:: Smoking status: Patient reports the use of cigarette tobacco products, denies chronic smoking, but will smoke occasionally. Screenin:41 [facility] ED Fall Risk Assessment (Adult) History of falling in the last 3 months, bp including since admission No falls in past 3 months (0 pts) Confusion or Disorientation No (0 pts) Intoxicated or Sedated No (0 pts) Impaired Gait No (0 pts) Mobility Assist Device Used No (0 pt) Altered Elimination No (0 pt) Score/Fall Risk Level 0 - 2 = Low Risk Oriented to surroundings. Abuse screen: Denies threats or abuse. Denies injuries from another. Nutritional screening: No deficits noted. Tuberculosis screening: No symptoms or risk factors identified. Assessment: 07:40 General: Appears in no apparent distress. Behavior is calm, cooperative, appropriate bp for age. Pain: Denies pain. Neuro: No deficits noted. Cardiovascular: Rhythm is sinus rhythm. Respiratory: Reports cough that is. GI: No signs and/or symptoms were reported involving the gastrointestinal system. : No signs and/or symptoms were reported regarding the genitourinary system. EENT: No deficits noted. Derm: No deficits noted. Musculoskeletal: No deficits noted. Vital Signs: 07:38 BP 138 / 76; Pulse 77; Resp 17; Temp 97.9; Pulse Ox 97% on R/A; Weight 113.4 kg; Height ll1 5 ft. 11 in. ; Pain 0/10; 07:38 Body Mass Index 34.87 (113.40 kg, 180.34 cm) ll1 07:38 Pain Scale: Adult ll1 ED Course: 07:29 Patient arrived in ED. sj2 07:37 Adrien Ledesma DO is Attending Physician. ms3 07:37 Arm band placed on Patient placed in an exam room, on a stretcher. ll1 07:40 Triage completed. ll1 07:40 Jan Sanchez, RN is Primary Nurse. bp 07:41 Patient has correct armband on for positive identification. bp 07:43 Jens Mir DO is Referral Physician. ms3 07:56 No provider procedures requiring assistance completed. Patient did not have IV access bp during this emergency room visit. 07:57 Provided Education on: NA. bp Administered Medications: No medications were administered Medication: 07:56 VIS not applicable for this client. bp Outcome: 07:43 Discharge ordered by . ms3 07:56 Discharged to home ambulatory, bp 07:56 Condition: stable 07:56 Discharge instructions given to patient, Instructed on discharge instructions, follow up and referral plans. medication usage, Demonstrated understanding of instructions, follow-up care, medications, Prescriptions given X 1, 07:57 Patient left the ED. bp Signatures: Jan Sanchez RN RN bp Dimitrios Richter RN RN ll1 Adrien Ledesma DO DO ms3 Nohemy Nino 2
--- NOTE | 2024-02-13 07:58 | EDPHYS ---
Physician Documentation [facility] Name: Boom Cota II Age: 23 yrs Sex: Male : 2000 Arrival Date: 02/13/2024 Time: 07:25 Bed 5 Private MD: ED Physician Adrien Ledesma HPI: 02/12 07:46 This 23 yrs old Male presents to ER via Ambulatory with complaints of Asthma ms3 Exacerbation. 07:46 Boom Cota is a 23-year-old male who presents to the Emergency Department with a ms3 complaint of asthma that has been worse since yesterday. He is seeking information on primary care doctors and reports using both an inhaler and a nebulizer for asthma management at home. He is not experiencing other symptoms. He states he needs a prescription for an inhaler. Historical: - Allergies: 07:37 No Known Allergies; ll1 - Home Meds: 07:37 albuterol sulfate 2.5 mg /3 mL (0.083 %) Inhl Solution for Nebulization [Active]; ll1 - PMHx: 07:37 Asthma; ll1 - PSHx: 07:37 None; ll1 - Immunization history:: Adult Immunizations up to date. - Infectious Disease History:: Denies. - Social history:: Smoking status: Patient reports the use of cigarette tobacco products, denies chronic smoking, but will smoke occasionally. ROS: 07:46 Constitutional: Negative for fever, and chills. Cardiovascular: Negative for chest ms3 pain, and palpitations. 07:46 Abdomen/GI: Negative for abdominal pain, nausea, vomiting, diarrhea, and constipation, MS/Extremity: Negative for injury and deformity, Skin: Negative for injury, rash, and discoloration, Neuro: Negative for headache, weakness, numbness, tingling. 07:46 Respiratory: Positive for shortness of breath, Exam: 07:46 Constitutional: This is a well developed, well nourished patient who is awake, alert, ms3 and in no acute distress. Head/Face: Normocephalic, atraumatic. Chest/axilla: Normal chest wall appearance and motion. Nontender with no deformity. Cardiovascular: Regular rate and rhythm with a normal S1 and S2. No gallops, murmurs, or rubs. Normal PMI, no JVD. No pulse deficits. Respiratory: Lungs have equal breath sounds bilaterally, clear to auscultation and percussion. No rales, rhonchi or wheezes noted. No increased work of breathing, no retractions or nasal flaring. Abdomen/GI: Soft, non-tender, with normal bowel sounds. No distension or tympany. No guarding or rebound. No evidence of tenderness throughout. Skin: Warm, dry with normal turgor. Normal color with no rashes, no lesions, and no evidence of cellulitis. Vital Signs: 07:38 BP 138 / 76; Pulse 77; Resp 17; Temp 97.9; Pulse Ox 97% on R/A; Weight 113.4 kg; Height ll1 5 ft. 11 in. ; Pain 0/10; 07:38 Body Mass Index 34.87 (113.40 kg, 180.34 cm) ll1 07:38 Pain Scale: Adult ll1 MDM: 07:43 Medical Screening Exam initiated ms3 07:46 Differential diagnosis: acute asthma, reactive airway. Data reviewed: vital signs, ms3 nurses notes, and as a result, I will discharge patient. I considered the following discharge prescriptions or medication management in the emergency department See Rx. Counseling: I had a detailed discussion with the patient and/or guardian regarding the historical points, exam findings, and any diagnostic results supporting the discharge/admit diagnosis, the need for outpatient follow up, to return to the emergency department if symptoms worsen or persist or if there are any questions or concerns that arise at home. Special discussion: I discussed with the patient/guardian in detail that at this point there is no indication for admission to the hospital. It is understood, however, that if the symptoms persist or worsen the patient needs to return immediately for re-evaluation. ED course: Discussed physical exam findings with patient. Patient to follow-up with Dr. Mir in 2 to 3 days. Patient understands and agrees with plan. All questions were answered. Patient given prescription for albuterol inhaler. Return precautions discussed include worsening symptoms, or any other concerns.. Administered Medications: No medications were administered Disposition: 09:14 Chart complete. ms3 Disposition Summary: 02/13/24 07:43 Discharge Ordered Notes: Location: Home ms3 Condition: Stable ms3 Diagnosis - Mild intermittent asthma ms3 Followup: ms3 - With: Jens Mir DO - When: 2 - 3 days - Reason: Recheck today's complaints Discharge Instructions: - Discharge Summary Sheet ll1 - Asthma Action Plan, Adult ms3 - Asthma Attack Prevention, Adult ms3 Forms: - Work release form ll1 - Medication Reconciliation Form ms3 - Antibiotic Education ms3 - Prescription Opioid Use ms3 - Patient Portal Instructions ms3 - Leadership Thank You Letter ms3 Prescriptions: - albuterol sulfate 90 mcg/actuation Inhalation HFA Aerosol Inhaler - inhale 1 inhalation INHALATION route every 4 hours as needed for bronchospasm; ms3 administer via ventilator; 1 unit; Refills: 0, Product Selection Permitted Signatures: Dimitrios Richter RN RN ll1 Adrien Ledesma DO DO ms3
[2024-02-13 08:03] VITALS: BP 138/76; TEMP 97.9; O2SAT 97
== END 2024-02-13 07:57 | disposition home or self-care (01) ==
LOC: ER 07:25
DX: J45.20 Mild intermittent asthma, uncomplicated (principal); F17.210 Nicotine dependence, cigarettes, uncomplicated
CPT/HCPCS: 99283

== ENCOUNTER 2024-03-03 21:17 | Emergency (ER) | payer BC ==
[2024-03-03] MEDS ORDERED: ALBUTEROL 2.5 MG/3 ML NEB SOL ONE (23:48)
[2024-03-03] MEDS ORDERED: IPRATROPIUM BROM 0.5MG/2.5ML ONE (23:48)
[2024-03-03] MEDS ORDERED: dexAMETHasone 10 MG/ML VIAL ONE (23:49)
--- NOTE | 2024-03-04 00:14 | ER ---
Nurse's Notes [facility] Name: Boom Cota II Age: 23 yrs Sex: Male : 2000 Arrival Date: 03/03/2024 Time: 21:17 Bed 10 Private MD: Diagnosis: Mild persistent asthma Presentation: 03/03 21:26 Chief complaint: Patient states: "my asthma is acting up". Pt reports cough and cm10 shortness of breath onset this morning. Coronavirus screen: Client denies travel out of the [place] in the last 14 days. Ebola Screen: Patient denies travel to an Ebola-affected area in the 21 days before illness onset. No symptoms or risks identified at this time. Initial Sepsis Screen: Does the patient meet any 2 criteria? HR > 90 bpm. Does the patient have a suspected source of infection? No. Patient's initial sepsis screen is negative. Risk Assessment: Do you want to hurt yourself or someone else? Patient reports no desire to harm self or others. Onset of symptoms was March 03, 2024. 21:26 Method Of Arrival: Ambulatory cm10 21:26 Acuity: CORNELIO 3 cm10 Triage Assessment: 21:27 General: Appears in no apparent distress. comfortable, Behavior is calm, cooperative. cm10 Neuro: No deficits noted. Level of Consciousness is awake, alert, obeys commands, Oriented to person, place, time, situation, Appropriate for age. Respiratory: No deficits noted. Airway is patent Respiratory effort is even, unlabored, Respiratory pattern is regular, symmetrical. Historical: - Allergies: 21:27 No Known Allergies; cm10 - PMHx: 21:27 Asthma; cm10 - Immunization history:: Adult Immunizations up to date. - Infectious Disease History:: Denies. - Social history:: Smoking status: Patient denies any tobacco usage or history of. Patient uses street drugs, marijuana. Screenin/31 00:37 [facility] ED Fall Risk Assessment (Adult) History of falling in the last 3 months, vc1 including since admission No falls in past 3 months (0 pts) Confusion or Disorientation No (0 pts) Intoxicated or Sedated No (0 pts) Impaired Gait No (0 pts) Mobility Assist Device Used No (0 pt) Altered Elimination No (0 pt) Score/Fall Risk Level 0 - 2 = Low Risk Oriented to surroundings, Maintained a safe environment, Educated pt \\T\\ family on fall prevention, incl call for assistance when getting out of bed. Abuse screen: Denies threats or abuse. Nutritional screening: No deficits noted. Tuberculosis screening: No symptoms or risk factors identified. Vital Signs: 03/03 21:26 BP 144 / 83; Pulse 99; Resp 18; Temp 98.1(TE); Pulse Ox 97% on R/A; Weight 115.67 kg; cm10 Height 5 ft. 11 in. ; Pain 0/10; 21:26 Body Mass Index 35.56 (115.67 kg, 180.34 cm) cm10 21:26 Pain Scale: Adult cm10 ED Course: 21:19 Patient arrived in ED. ra3 21:21 Meño Putnam F[facility]C [facility] dr5 21:21 Kody Snider MD is Attending Physician. dr5 21:27 Triage completed. cm10 21:27 Arm band placed on right wrist. Patient placed in waiting room. cm10 21:30 Patient has correct armband on for positive identification. Bed in low position. Call vc1 light in reach. Provided Education on: steroids. 03/04 00:37 No provider procedures requiring assistance completed. Patient did not have IV access vc1 during this emergency room visit. 00:39 Samantha Calix, RN is Primary Nurse. vc1 Administered Medications: 00:04 Drug: DuoNeb Nebulize (3:1) (2.5 mg - 0.5 mg) 6 ml Nebulizer once Route: Nebulizer; lg3 00:04 Drug: Dexamethasone IM 10 mg IM once Route: IM; Site: right deltoid; lg3 Medication: 00:37 VIS not applicable for this client. vc1 Outcome: 00:13 Discharge ordered by . dr5 00:37 Discharged to home ambulatory, vc1 00:37 Condition: good 00:37 Discharge instructions given to patient, Instructed on discharge instructions, follow up and referral plans. medication usage, Demonstrated understanding of instructions, follow-up care, medications, Prescriptions given X 3, 00:39 Patient left the ED. vc1 Signatures: Temi Rosado RN RN lg3 Samantha Calix RN RN vc1 Sujata Freire RN RN cm10 Rossana Alvarez ra3 Putnam, Meño, BENEFITS SPECIALIST-C BENEFITS SPECIALIST-Cdr5
--- NOTE | 2024-03-04 00:14 | EDPHYS ---
Physician Documentation [facility] Name: Boom Cota II Age: 23 yrs Sex: Male : 2000 Arrival Date: 03/03/2024 Time: 21:17 Bed 10 Private MD: ED Physician Kody Snider HPI: 03/03 21:25 This 23 yrs old Male presents to ER via Unassigned with complaints of Asthma dr5 Exacerbation. 21:25 Pt reports shortness of breath that's been going on since this morning with cough. Pt dr5 currently has hx of asthma and took 1 dose of albuterol from his machine this morning. Patient denies fever, nausea, vomiting, constipation, or diarrhea.. Historical: - Allergies: 21:27 No Known Allergies; cm10 - PMHx: 21:27 Asthma; cm10 - Immunization history:: Adult Immunizations up to date. - Infectious Disease History:: Denies. - Social history:: Smoking status: Patient denies any tobacco usage or history of. Patient uses street drugs, marijuana. ROS: 21:25 Constitutional: as per hpi dr5 Exam: 21:25 Constitutional: This is a well developed, well nourished patient who is awake, alert, dr5 and in no acute distress. Head/Face: Normocephalic, atraumatic. Eyes: Pupils equal round and reactive to light, extra-ocular motions intact. Lids and lashes normal. Conjunctiva and sclera are non-icteric and not injected. Cornea within normal limits. Periorbital areas with no swelling, redness, or edema. Neck: Trachea midline, no thyromegaly or masses palpated, and no cervical lymphadenopathy. Supple, full range of motion without nuchal rigidity, or vertebral point tenderness. No Meningismus. Chest/axilla: Normal chest wall appearance and motion. Nontender with no deformity. No lesions are appreciated. Cardiovascular: Regular rate and rhythm with a normal S1 and S2. Normal PMI, no JVD. No pulse deficits. 21:25 Neuro: Awake and alert, GCS 15, oriented to person, place, time, and situation. Cranial nerves II-XII grossly intact. Motor strength 5/5 in all extremities. Sensory grossly intact. Cerebellar exam normal. Normal gait. 21:25 Respiratory: mild respiratory distress is noted, Respirations: no acute changes, Breath sounds: wheezing: that is moderate, is scattered, Vital Signs: 21:26 BP 144 / 83; Pulse 99; Resp 18; Temp 98.1(TE); Pulse Ox 97% on R/A; Weight 115.67 kg; cm10 Height 5 ft. 11 in. ; Pain 0/10; 21:26 Body Mass Index 35.56 (115.67 kg, 180.34 cm) cm10 21:26 Pain Scale: Adult cm10 MDM: 21:24 Medical Screening Exam initiated dr5 03/04 00:11 Differential diagnosis: acute asthma, exercise-induced asthma, reactive airway. dr5 Antibiotic administration: Not indicated, the patient does not have an appreciated infiltrate, the patient's primary pathology is reactive airway disease. Data reviewed: vital signs, nurses notes. Care significantly affected by the following chronic conditions: Asthma. Care significantly affected by the following Social Determinants of Health: Poor access to healthcare and/or lack of insurance, Poor access to transportation, Problems related to employment. 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 Medication response: albuterol nebulizer treatment(s) relieved the patient's symptoms. The patient is no longer wheezing. Response to treatment: the patient's symptoms have resolved after treatment. ED course: DuoNeb x 2 and dexamethasone IM given in ER. Will give patient steroid pack and refill albuterol nebulizer and give inhaler. All questions answered. Recommended patient follow-up with primary care doctor as needed for further management on asthma.. Administered Medications: 00:04 Drug: DuoNeb Nebulize (3:1) (2.5 mg - 0.5 mg) 6 ml Nebulizer once Route: Nebulizer; lg3 00:04 Drug: Dexamethasone IM 10 mg IM once Route: IM; Site: right deltoid; lg3 Disposition Summary: 03/04/24 00:13 Discharge Ordered Notes: Location: Home dr5 Condition: Stable dr5 Diagnosis - Mild persistent asthma dr5 Followup: dr5 - With: Emergency Department - When: As needed - Reason: Worsening of condition Followup: dr5 - With: Private Physician - When: 1 - 2 days - Reason: Recheck today's complaints, Continuance of care, Re-evaluation by your physician Discharge Instructions: - Discharge Summary Sheet dr5 - Asthma Attack dr5 Forms: - Medication Reconciliation Form dr5 - Patient Portal Instructions dr5 - Leadership Thank You Letter dr5 Prescriptions: - albuterol sulfate 90 mcg/actuation Inhalation HFA Aerosol Inhaler - inhale 2 puff INHALATION route every 4 hours as needed for shortness of breath dr5 or wheezing; 1 application; Refills: 0, Product Selection Permitted - Albuterol Sulfate 2.5 mg /3 mL (0.083 %) Inhalation Solution for Nebulization - inhale 1 unit NEBULIZATION route every 8 hours As needed; 30 unit; Refills: 0, dr5 Product Selection Permitted - Prednisone 20 mg Oral Tablet - take 2 tablets ORAL route once daily for 5 days; 10 tablet; Refills: 0, Product dr5 Selection Permitted Addendum: 03/05/2024 06:44 Co-signature as Attending Physician, Kody Snider MD I agree with the assessment and c sanders plan of care. Signatures: Kody Snider MD MD cha Able, Lacie RN RN lg3 Sujata Freire RN RN cm10 Meño Putnam, PATTY-C ANIMAL TRAPPER-Cdr5
[2024-03-04 08:26] VITALS: BP 144/83; TEMP 98.1; O2SAT 97
== END 2024-03-04 00:39 | disposition home or self-care (01) ==
LOC: ER 21:17
DX: J45.30 Mild persistent asthma, uncomplicated (principal)
CPT/HCPCS: 96372; 99284; J7613; J7644; J1100

== ENCOUNTER 2024-05-12 08:56 | Emergency (ER) | payer BC ==
[2024-05-12] MEDS ORDERED: ALBUTEROL 2.5 MG/3 ML NEB SOL ONE (09:31)
[2024-05-12] MEDS ORDERED: IPRATROPIUM BROM 0.5MG/2.5ML ONE (09:31)
[2024-05-12] MEDS ORDERED: CETIRIZINE HCL 5 MG TABLET ONE (09:32)
[2024-05-12] MEDS ORDERED: predniSONE 20 MG TAB ONE (09:32)
--- NOTE | 2024-05-12 10:23 | ER ---
Nurse's Notes [facility] Name: Boom Cota II Age: 24 yrs Sex: Male : 2000 Arrival Date: 05/12/2024 Time: 08:56 Bed 13 Private MD: Diagnosis: Unspecified asthma with (acute) exacerbation Presentation: 05/12 09:19 Chief complaint: Patient states: difficulty breathing that began yesterday. HX of ss asthma. Pt is out of albuterol inhaler. States he used his friends yesterday and it helped for a little while. Coronavirus screen: Client denies travel out of the [place] in the last 14 days. Ebola Screen: Patient denies exposure to infectious person. Patient denies travel to an Ebola-affected area in the 21 days before illness onset. Initial Sepsis Screen: Does the patient meet any 2 criteria? No. Patient's initial sepsis screen is negative. Does the patient have a suspected source of infection? No. Patient's initial sepsis screen is negative. Risk Assessment: Do you want to hurt yourself or someone else? Patient reports no desire to harm self or others. Onset of symptoms was May 11, 2024. 09:19 Method Of Arrival: Ambulatory ss 09:19 Acuity: CORNELIO 3 ss Historical: - Allergies: 09:21 No Known Allergies; ss - PMHx: 09:21 Asthma; ss - PSHx: 09:21 None; ss - Infectious Disease History:: Denies. - Social history:: Smoking status: Patient reports the use of cigarette tobacco products, denies chronic smoking, but will smoke occasionally. Screenin:48 [facility] ED Fall Risk Assessment (Adult) History of falling in the last 3 months, kc6 including since admission No falls in past 3 months (0 pts) Confusion or Disorientation No (0 pts) Intoxicated or Sedated No (0 pts) Impaired Gait No (0 pts) Mobility Assist Device Used No (0 pt) Altered Elimination No (0 pt) Score/Fall Risk Level 0 - 2 = Low Risk Oriented to surroundings, Maintained a safe environment, Educated pt \T\ family on fall prevention, incl call for assistance when getting out of bed. Abuse screen: Denies threats or abuse. Denies injuries from another. Nutritional screening: No deficits noted. Tuberculosis screening: No symptoms or risk factors identified. Assessment: 09:47 General: Appears in no apparent distress. comfortable, well groomed, well developed, kc6 Behavior is calm, cooperative, appropriate for age. Pain: Denies pain. Neuro: Level of Consciousness is awake, alert, obeys commands, Oriented to person, place, time, situation, Appropriate for age. Cardiovascular: Reports shortness of breath, Denies chest pain, Heart tones S1 S2 present Capillary refill < 3 seconds Rhythm is regular. Respiratory: Reports shortness of breath on exertion Airway is patent Trachea midline Respiratory effort is even, unlabored, Respiratory pattern is regular, symmetrical, Breath sounds with wheezes bilaterally. GI: No signs and/or symptoms were reported involving the gastrointestinal system. : No signs and/or symptoms were reported regarding the genitourinary system. EENT: No signs and/or symptoms were reported regarding the EENT system. Derm: No signs and/or symptoms reported regarding the dermatologic system. Skin is intact, is healthy with good turgor, Skin is pink, warm \T\ dry. Musculoskeletal: No signs and/or symptoms reported regarding the musculoskeletal system. Circulation, motion, and sensation intact. Range of motion: intact in all extremities. 10:38 Reassessment: Patient appears in no apparent distress at this time. No changes from kc6 previously documented assessment. Patient and/or family updated on plan of care and expected duration. Pain level reassessed. Patient is alert, oriented x 3, equal unlabored respirations, skin warm/dry/pink. Patient states feeling better. Patient states symptoms have improved. Vital Signs: 09:19 BP 128 / 87; Pulse 93; Resp 15; Temp 98.3(O); Pulse Ox 97% on R/A; Weight 120.2 kg; ss Height 6 ft. 0 in. ; Pain 0/10; 10:38 BP 128 / 85; Pulse 90; Resp 19 S; Pulse Ox 99% on R/A; kc6 09:19 Body Mass Index 35.94 (120.20 kg, 182.88 cm) 09:19 Pain Scale: Adult ss ED Course: 09:01 Patient arrived in ED. cj3 09:04 Kody Jacobsen PA is PHCP. cp 09:06 Amari Enriquez MD is Attending Physician. cp 09:21 Triage completed. ss 09:21 Arm band placed on right wrist. ss 09:28 Tracey Cavazos, RN is Primary Nurse. kc6 09:48 Patient has correct armband on for positive identification. Bed in low position. Call kc6 light in reach. Side rails up X 1. Pulse ox on. NIBP on. Door closed. Noise minimized. Lights dimmed. Warm blanket given. Pillow given. Verbal reassurance given. 09:48 No provider procedures requiring assistance completed. Patient maintains SpO2 kc6 saturation greater than 95% on room air. 09:56 XRAY Chest (1 view) In Process Unspecified. EDMS 10:38 Patient did not have IV access during this emergency room visit. kc6 Administered Medications: 09:37 Drug: Albuterol Inhalation 2.5 mg Inhalation once Route: Inhalation; kc6 10:39 Follow up: Response: No adverse reaction kc6 09:38 Drug: Ipratropium Inhalation Aerosol 0.5 mg Inhalation once Route: Inhalation; kc6 10:39 Follow up: Response: No adverse reaction kc6 09:38 Drug: predniSONE PO 60 mg PO once Route: PO; kc6 10:39 Follow up: Response: No adverse reaction kc6 09:38 Drug: ZyrTEC - Cetirizine PO 10 mg PO once Route: PO; kc6 10:39 Follow up: Response: No adverse reaction kc6 Medication: 10:38 VIS not applicable for this client. kc6 Outcome: 10:22 Discharge ordered by . cp 10:38 Discharged to home ambulatory, kc6 10:38 Condition: good 10:38 Discharge instructions given to patient, Instructed on discharge instructions, follow up and referral plans. medication usage, Demonstrated understanding of instructions, follow-up care, medications, Prescriptions given X 2, 10:39 Patient left the ED. kc6 Signatures: Dispatcher [employer] EDMS Alise Yap RN RN Kody Fish PA PA cp Tracey Cavazos, RN RN kc6 Sultana Kimball cj3
--- NOTE | 2024-05-12 10:23 | EDPHYS ---
Physician Documentation [facility] Name: Boom Cota II Age: 24 yrs Sex: Male : 2000 Arrival Date: 05/12/2024 Time: 08:56 Bed 13 Private MD: ED Physician Amari Enriquez HPI: 05/12 09:20 This 24 yrs old Male presents to ER via Ambulatory with complaints of cp Breathing Difficulty. 09:20 The patient has shortness of breath at rest. Onset: The symptoms/episode began/occurred cp this morning. Associated signs and symptoms: Pertinent positives: wheezing, Pertinent negatives: chest pain, non-productive cough, productive cough, fever, vomiting, sore throat. Patient reports PMHX significant for asthma. SOB started this morning. Ran out of Albuterol inhaler. Historical: - Allergies: 09:21 No Known Allergies; ss - PMHx: 09:21 Asthma; ss - PSHx: 09:21 None; ss - Infectious Disease History:: Denies. - Social history:: Smoking status: Patient reports the use of cigarette tobacco products, denies chronic smoking, but will smoke occasionally. ROS: 09:25 Respiratory: Positive for shortness of breath, wheezing, Negative for cough, cp 09:25 Eyes: Negative for injury, pain, redness, and discharge, cp 09:25 Constitutional: Negative for body aches, chills, fever, poor PO intake, 09:25 ENT: Negative for drainage from ear(s), ear pain, sore throat, difficulty swallowing, difficulty handling secretions, 09:25 Cardiovascular: Negative for chest pain, edema, palpitations, Vital Signs: 09:19 BP 128 / 87; Pulse 93; Resp 15; Temp 98.3(O); Pulse Ox 97% on R/A; Weight 120.2 kg; ss Height 6 ft. 0 in. ; Pain 0/10; 10:38 BP 128 / 85; Pulse 90; Resp 19 S; Pulse Ox 99% on R/A; kc6 09:19 Body Mass Index 35.94 (120.20 kg, 182.88 cm) ss 09:19 Pain Scale: Adult ss MDM: 09:11 Medical Screening Exam initiated cp 10:03 Antibiotic administration: Not indicated, the patient does not have an appreciated cp infiltrate, the patient's primary pathology is reactive airway disease. 10:22 Data reviewed: vital signs, nurses notes, radiologic studies, plain films, and as a cp result, I will discharge patient. 05/12 09:18 Order name: XRAY Chest (1 view) cp Administered Medications: 09:37 Drug: Albuterol Inhalation 2.5 mg Inhalation once Route: Inhalation; kc6 10:39 Follow up: Response: No adverse reaction kc6 09:38 Drug: Ipratropium Inhalation Aerosol 0.5 mg Inhalation once Route: Inhalation; kc6 10:39 Follow up: Response: No adverse reaction kc6 09:38 Drug: predniSONE PO 60 mg PO once Route: PO; kc6 10:39 Follow up: Response: No adverse reaction kc6 09:38 Drug: ZyrTEC - Cetirizine PO 10 mg PO once Route: PO; kc6 10:39 Follow up: Response: No adverse reaction kc6 Disposition: 18:07 Co-signature as Attending Physician, Amari Enriquez MD I reviewed the patient's care rn provided by the Advanced Practice Provider and agree with the diagnosis and treatment plan. Disposition Summary: 05/12/24 10:22 Discharge Ordered Notes: Location: Home cp Problem: an acute exacerbation cp Symptoms: have improved cp Condition: Stable cp Diagnosis - Unspecified asthma with (acute) exacerbation cp Followup: cp - With: Private Physician - When: 2 - 3 days - Reason: Worsening of condition Discharge Instructions: - Discharge Summary Sheet cp - Asthma, Adult cp Forms: - Medication Reconciliation Form cp - Antibiotic Education cp - Prescription Opioid Use cp - Patient Portal Instructions cp - Leadership Thank You Letter cp Prescriptions: - albuterol sulfate 90 mcg/actuation Inhalation HFA Aerosol Inhaler - inhale 1 puff INHALATION route every 4-6 hours as needed for shortness of cp breath or wheezing; 1 unit; Refills: 0, Product Selection Permitted - Prednisone 20 mg Oral Tablet - take 2 tablets ORAL route once daily for 5 days; 10 tablet; Refills: 0, Product cp Selection Permitted Signatures: Dispatcher [employer] Amari Daigle MD MD rn Blanchard, Shelby, RN RN ss Page, Corey, PA PA cp Campbell, Kaitlyn, RN RN kc6
[2024-05-12 10:45] VITALS: TEMP 98.3
--- NOTE | 2024-05-12 10:45 | RAD REPORT ---
EXAMINATION: ONE VIEW CHEST XR CLINICAL INDICATION: Male, 24 years old.,SOB TECHNIQUE: Frontal chest projection is submitted. Examination is limited by patient positioning and t echnique. COMPARISON: 12/01/2023 FINDINGS: The lungs are well inflated and clear. No pneumothorax or sizable effusion. The heart is normal in s ize. Mediastinal contours are unremarkable. IMPRESSION: No acute intrathoracic abnormalities.
[2024-05-12 10:46] VITALS: BP 128/85; O2SAT 99
== END 2024-05-12 10:39 | disposition home or self-care (01) ==
LOC: ER 08:56
DX: J45.901 Unspecified asthma with (acute) exacerbation (principal); F17.210 Nicotine dependence, cigarettes, uncomplicated
CPT/HCPCS: 71045; 99284; J7512; J7613; J7644

== ENCOUNTER 2024-05-30 07:57 | Emergency (ER) | payer BC ==
[2024-05-30] MEDS ORDERED: predniSONE 20 MG TAB ONE (08:52)
[2024-05-30] MEDS ORDERED: ALBUTEROL 2.5 MG/3 ML NEB SOL ONE (08:52)
[2024-05-30] MEDS ORDERED: IPRATROPIUM BROM 0.5MG/2.5ML ONE (08:52)
--- NOTE | 2024-05-30 09:12 | EDPHYS ---
Physician Documentation [facility] Name: Boom Cota II Age: 24 yrs Sex: Male : 2000 Arrival Date: 05/30/2024 Time: 07:57 Bed 9 Private MD: ED Physician John Mir HPI: 05/30 09:08 This 24 yrs old Male presents to ER via Unassigned with complaints of sp3 Breathing Difficulty. 09:08 24-year-old male with history of asthma with daily nebulizer use and rescue inhaler as sp3 needed now presents to the ED with asthma exacerbation since last night after visiting a [employer] [place]. Patient denies any fever, productive cough, chest pain, back pain, or any other signs or symptoms on ROS at this time.. Historical: - Allergies: 09:13 No Known Allergies; jl7 - PMHx: 09:13 Asthma; jl7 - Immunization history:: Adult Immunizations unknown. - Infectious Disease History:: Denies. - Social history:: Smoking status: Patient reports the use of cigarette tobacco products, denies chronic smoking, but will smoke occasionally. ROS: 09:09 Constitutional: Negative for fever, chills, and weight loss, Eyes: Negative for injury, sp3 pain, redness, and discharge, ENT: Negative for injury, pain, and discharge, Neck: Negative for injury, pain, and swelling, Cardiovascular: Negative for chest pain, palpitations, and edema, Abdomen/GI: Negative for abdominal pain, nausea, vomiting, diarrhea, and constipation, Back: Negative for injury and pain, MS/Extremity: Negative for injury and deformity, Skin: Negative for injury, rash, and discoloration, Neuro: Negative for headache, weakness, numbness, tingling, and seizure, Psych: Negative for depression, anxiety, suicide ideation, homicidal ideation, and hallucinations, Allergy/Immunology: Negative for hives, rash, and allergies, Endocrine: Negative for neck swelling, polydipsia, polyuria, polyphagia, and marked weight changes, 09:09 All other systems are negative, Exam: 09:10 Constitutional: This is a well developed, well nourished patient who is awake, alert, sp3 and in no acute distress. Head/Face: Normocephalic, atraumatic. Eyes: Pupils equal round and reactive to light, extra-ocular motions intact. Lids and lashes normal. Conjunctiva and sclera are non-icteric and not injected. Cornea within normal limits. Periorbital areas with no swelling, redness, or edema. ENT: Nares patent. No nasal discharge, no septal abnormalities noted. External auditory canals are clear. Oropharynx with no redness, swelling, or masses, exudates, or evidence of obstruction, uvula midline. Mucous membranes moist. Neck: Trachea midline, no thyromegaly or masses palpated, and no cervical lymphadenopathy. Supple, full range of motion without nuchal rigidity, or vertebral point tenderness. No Meningismus. Chest/axilla: Normal chest wall appearance and motion. Nontender with no deformity. No lesions are appreciated. Cardiovascular: Regular rate and rhythm with a normal S1 and S2. No gallops, murmurs, or rubs. Normal PMI, no JVD. No pulse deficits. Abdomen/GI: Soft, non-tender, with normal bowel sounds. No distension or tympany. No guarding or rebound. No evidence of tenderness throughout. Back: No spinal tenderness. No costovertebral tenderness. Full range of motion. Skin: Warm, dry with normal turgor. Normal color with no rashes, no lesions, and no evidence of cellulitis. MS/ Extremity: Pulses equal, no cyanosis. Neurovascular intact. Full, normal range of motion. Neuro: Awake and alert, GCS 15, oriented to person, place, time, and situation. Cranial nerves II-XII grossly intact. Motor strength 5/5 in all extremities. Sensory grossly intact. Cerebellar exam normal. Normal gait. Psych: Awake, alert, with orientation to person, place and time. Behavior, mood, and affect are within normal limits. 09:10 Respiratory: Mild expiratory wheezing noted. Patient with no difficulty and saturations are normal., Vital Signs: 08:45 BP 139 / 84; Pulse 74; Resp 17; Temp 98.8; Pulse Ox 99% ; Weight 120.2 kg; Height 6 ft. jl7 0 in. ; 08:45 Body Mass Index 35.94 (120.20 kg, 182.88 cm) jl7 MDM: 08:29 Medical Screening Exam initiated sp3 09:11 Data reviewed: vital signs, nurses notes, radiologic studies. ED course: 34-year-old sp3 male with small conduced asthma from [facility]. I am not highly suspicious of pneumonia, respiratory failure, sepsis or shock for PE. Chest x-ray is normal. Patient is improved after nebulizer treatment. We will safely discharge him home on p.o. steroids at this time with continue nebulizer use as needed. Patient has adequate rescue inhaler at home. 1 dose of steroid in ED p.o. prior to discharge as well.. 05/30 08:37 Order name: CXR XRAY sp3 Administered Medications: 09:12 Drug: DuoNeb Nebulize (3:1) (2.5 mg - 0.5 mg) 3 ml Nebulizer once Route: Nebulizer; jl7 10:00 Follow up: Response: No adverse reaction jl7 09:12 Drug: predniSONE PO 60 mg PO once Route: PO; jl7 10:00 Follow up: Response: No adverse reaction jl7 Disposition Summary: 05/30/24 09:12 Discharge Ordered Notes: Location: Home sp3 Condition: Stable sp3 Diagnosis - Asthma exacerbation sp3 Followup: sp3 - With: Private Physician - When: Upon discharge from the Emergency Department - Reason: Continuance of care Discharge Instructions: - Discharge Summary Sheet sp3 - Asthma Attack Prevention, Adult sp3 Forms: - Medication Reconciliation Form sp3 - Antibiotic Education sp3 - Prescription Opioid Use sp3 - Patient Portal Instructions sp3 - Leadership Thank You Letter sp3 Prescriptions: - albuterol sulfate 90 mcg/actuation Inhalation HFA Aerosol Inhaler - inhale 2 inhalation INHALATION route every 6 hours as needed for bronchospasm; sp3 administer via ventilator; 1 Each; Refills: 0, Product Selection Permitted - Prednisone 20 mg Oral Tablet - take 3 tablets ORAL route once daily for 5 days; 15 tablet; Refills: 0, Product sp3 Selection Permitted Signatures: Dispatcher [employer] Swathi Vazquez RN RN jl7 John Mir MD MD sp3
--- NOTE | 2024-05-30 09:56 | ER ---
Nurse's Notes [facility] Name: Boom Cota II Age: 24 yrs Sex: Male : 2000 Arrival Date: 05/30/2024 Time: 07:57 Bed 9 Private MD: Diagnosis: Asthma exacerbation Presentation: 05/30 08:45 Chief complaint: Patient states: SOB since this morning. jl7 08:45 Coronavirus screen: At this time, the client does not indicate any symptoms associated jl7 with coronavirus-19. Ebola Screen: No symptoms or risks identified at this time. 08:45 Method Of Arrival: Ambulatory jl7 08:45 Acuity: CORNELIO 3 jl7 08:45 Initial Sepsis Screen: Does the patient meet any 2 criteria? No. Patient's initial jl7 sepsis screen is negative. Does the patient have a suspected source of infection? No. Patient's initial sepsis screen is negative. Risk Assessment: Do you want to hurt yourself or someone else? Patient reports no desire to harm self or others. Onset of symptoms was May 30, 2024. Triage Assessment: 08:45 General: Appears in no apparent distress. comfortable, Behavior is calm, cooperative, jl7 appropriate for age. Pain: Denies pain. Respiratory: Reports shortness of breath Breath sounds with wheezes bilaterally. Onset: The symptoms/episode began/occurred gradually, the patient has mild shortness of breath. Historical: - Allergies: 09:13 No Known Allergies; jl7 - PMHx: 09:13 Asthma; jl7 - Immunization history:: Adult Immunizations unknown. - Infectious Disease History:: Denies. - Social history:: Smoking status: Patient reports the use of cigarette tobacco products, denies chronic smoking, but will smoke occasionally. Screenin:30 [facility] ED Fall Risk Assessment (Adult) History of falling in the last 3 months, jl7 including since admission No falls in past 3 months (0 pts) Confusion or Disorientation No (0 pts) Intoxicated or Sedated No (0 pts) Impaired Gait No (0 pts) Mobility Assist Device Used No (0 pt) Altered Elimination No (0 pt) Score/Fall Risk Level 0 - 2 = Low Risk Oriented to surroundings, Maintained a safe environment. Abuse screen: Denies threats or abuse. Denies injuries from another. Nutritional screening: No deficits noted. Tuberculosis screening: No symptoms or risk factors identified. Assessment: 09:55 Reassessment: Patient appears in no apparent distress at this time. Patient and/or ss family updated on plan of care and expected duration. Pain level reassessed. Patient is alert, oriented x 3, equal unlabored respirations, skin warm/dry/pink. Patient states feeling better. Patient states symptoms have improved. Vital Signs: 08:45 BP 139 / 84; Pulse 74; Resp 17; Temp 98.8; Pulse Ox 99% ; Weight 120.2 kg; Height 6 ft. jl7 0 in. ; 08:45 Body Mass Index 35.94 (120.20 kg, 182.88 cm) jl7 ED Course: 08:01 Patient arrived in ED. cj3 08:29 John Mir MD is Attending Physician. sp3 08:30 Swathi Casey RN is Primary Nurse. jl7 08:45 Arm band placed on right wrist. jl7 08:45 Patient has correct armband on for positive identification. Provided Education on: use jl7 of call guaman. 08:59 CXR XRAY In Process Unspecified. EDMS 09:13 Triage completed. jl7 09:55 No provider procedures requiring assistance completed. Patient did not have IV access ss during this emergency room visit. Administered Medications: 09:12 Drug: DuoNeb Nebulize (3:1) (2.5 mg - 0.5 mg) 3 ml Nebulizer once Route: Nebulizer; jl7 10:00 Follow up: Response: No adverse reaction jl7 09:12 Drug: predniSONE PO 60 mg PO once Route: PO; jl7 10:00 Follow up: Response: No adverse reaction jl7 Medication: 12:12 VIS not applicable for this client. jl7 Outcome: 09:12 Discharge ordered by . sp3 09:55 Discharged to home ambulatory, 09:55 Condition: improved 09:55 Discharge instructions given to patient, Instructed on discharge instructions, follow up and referral plans. medication usage, Demonstrated understanding of instructions, follow-up care, medications, Prescriptions given X 1, 09:55 Patient left the ED. ss Signatures: Dispatcher [employer] EDMS Alise Yap RN RN ss Swathi Casey RN RN jl7 John Mir MD MD sp3 Sultana Kimball cj3
[2024-05-30 10:01] VITALS: BP 139/84; TEMP 98.8; O2SAT 99
--- NOTE | 2024-05-30 10:01 | RAD REPORT ---
EXAMINATION: ONE VIEW CHEST XR CLINICAL INDICATION: Male, 24 years old.,DYSPNEA TECHNIQUE: Frontal chest projection is submitted. Examination is limited by patient positioning and t echnique. COMPARISON: 05/12/2024 FINDINGS: The lungs are well inflated and clear. No pneumothorax or sizable effusion. The heart is normal in s ize. Mediastinal contours are unremarkable. IMPRESSION: No acute intrathoracic abnormalities.
== END 2024-05-30 09:55 | disposition home or self-care (01) ==
LOC: ER 07:57
DX: J45.901 Unspecified asthma with (acute) exacerbation (principal); F17.210 Nicotine dependence, cigarettes, uncomplicated
CPT/HCPCS: 71045; 99284; J7512; J7613; J7644